=== PATIENT | male | born 1985 | race Caucasian/White ===

== ENCOUNTER 2016-09-25 19:18 | Emergency (ER) | payer OTHER ==
[2016-09-25 19:30] VITALS: PULSE 72; O2SAT 100
[2016-09-25] MEDS ORDERED: TORAdol 30 mg Injection IM ONE (19:34)
[2016-09-25] MEDS ORDERED: Norflex 60 MG/2 ML IM ONE (19:34)
--- NOTE | 2016-09-25 19:38 | ERPHSYRPT ---
- History of Present Illness Time Seen by Provider: 09/25/16 19:34 Source: patient Patient Subjective Stated Complaint: pt fell 2 days ago due to broken step -he twisted his lower back -he was going to come in then but decided to wait but tonight the pain is worse -increased pain with movement -no numbness or tingling Triage Nursing Assessment: pt is awake and alert and able to answer questions - required assistance with getting undressed due tot he pain but able to move all extremeties Physician History: CC: back pain hx: 31 y/o patient of [facility] [place]. He reports twisting low back and falling on a step at [facility] house two days ago. Recently moved here form . He has severe low back pain, constipation. No N/T/W. No incontinence. He repots allergic to benadryl. Has taken flexeril and naproxen in the past. Told nurse he ran out of vicodin this week but it is not listed on his INSPECT report. Pain severe and worse with movement. Timing/Duration: day(s) (2) Back Pain Location: lumbar spine Severity of Pain-Max: severe Severity of Pain-Current: severe Allergies/Adverse Reactions: diphenhydramine [From Benadryl] Allergy (Verified 09/25/16 19:37) Home Medications: Diclofenac Sodium 1 tab DAILY 09/25/16 [History] Hydrocodone/APAP 10/325 mg [[place] 10/325 MG Tablet] 1 tab 09/25/16 [ History] Hx Tetanus, Diphtheria Vaccination/Date Given: No Hx Influenza Vaccination/Date Given: No Immunizations Up to Date: No - Review of Systems Constitutional: No Fever, No Chills Respiratory: No Dyspnea Cardiac: No Chest Pain Abdominal/Gastrointestinal: No Abdominal Pain Genitourinary Symptoms: No Dysuria, No Incontinence Musculoskeletal: Back Pain Skin: No Rash Neurological: No Headache All Other Systems: Reviewed and Negative - Past Medical History Pertinent Past Medical History: Yes (hx back pain) - Social History Smoking Status: Current every day smoker Exposure to second hand smoke: Yes Patient Lives Alone: No - Nursing Vital Signs Temperature: 98 F Temperature Source: Oral Pulse Rate: 72 Respiratory Rate: 16 Pain Intensity: 10 - Physical Exam General Appearance: alert, thin Eye Exam: PERRL/EOMI Ears, Nose, Throat Exam: normal ENT inspection, moist mucous membranes Neck Exam: normal inspection, supple Respiratory Exam: normal breath sounds, lungs clear Cardiovascular Exam: regular rate/rhythm Gastrointestinal Exam: soft, No tenderness, No distention Male [place] Exam: normal genitalia Back Exam: vertebral tenderness, point tenderness Extremity Exam: normal inspection, normal range of motion Neurologic Exam: alert, oriented x 3, cooperative, sensation nml, other (2+ patellar MSR's bilateral), No motor deficits Skin Exam: warm, dry, jaundice, No rash SpO2: 100 Oxygen Delivery: Room Air - Course Nursing assessment & vital signs reviewed: Yes - CT Exams lumbar CT Interpretation: Tele-radiologist Report (DJD, L4-5 disk bulge) Ordered Tests: Active Orders 24 hr Category Date Time Status LUMBAR SPINE W/O [CT] Stat Exams 09/25/16 19:34 Taken Medication Summary Discontinued Medications Generic Name Dose Route Start Last Admin Trade Name Freq PRN Reason Stop Dose Admin Ketorolac Tromethamine 60 mg 09/25/16 19:34 09/25/16 19:43 Toradol 30 Mg Injection IM 09/25/16 19:35 60 mg STAT ONE Administration Ketorolac Tromethamine Confirm 09/25/16 19:41 Toradol 30 Mg Injection Administered 09/25/16 19:42 Dose 60 mg .ROUTE .STK-MED ONE Orphenadrine Citrate 60 mg 09/25/16 19:34 09/25/16 19:43 Norflex 60 Mg/2 Ml IM 09/25/16 19:35 60 mg STAT ONE Administration Orphenadrine Citrate Confirm 09/25/16 19:41 Norflex 60 Mg/2 Ml Administered 09/25/16 19:42 Dose 60 mg .ROUTE .STK-MED ONE - Progress Progress Note: 09/25/16 20:44 Toradol and norflex given. Advised follow up and consider PT. Instr given. Counseled pt/family regarding: diagnosis, need for follow-up, rad results - Departure Time of Disposition: 20:44 Departure Disposition: Home Clinical Impression: Lumbar sprain Qualifiers: Encounter type: initial encounter Qualified Code(s): S33.5XXA - Sprain of ligaments of lumbar spine, initial encounter Condition: Stable Critical Care Time: No Referrals: DOCTOR,NO FAMILY [NON-STAFF PHY W/O PRIVILEGES] - Instructions: Low Back Pain Additional Instructions: BACK INJURY 1. May apply moist heat frequently for relief of pain. Take care not to burn the skin. Do not use heat for more than 30 minutes at a time. 2. Try to sleep on a firm bed, flat on your back. 3. If no improvement is noticed in 2-3 days, follow up with your family physician. 4. If you notice any numbness, tingling, weakness, or problems with your bowel or bladder, you should call your family physician or return to the emergency department. Rx norflex- no driving. Rx naproxen for pain. Follow up with a family doctor to consider physical therapy. Prescriptions: Naproxen 1 tab PO BID #20 tablet Orphenadrine Citrate 100 mg [Norflex 100 MG Tablet] 1 tab PO BID #10 tab
[2016-09-25] MEDS ORDERED: TORAdol 30 mg Injection ONE (19:41)
[2016-09-25] MEDS ORDERED: Norflex 60 MG/2 ML ONE (19:41)
[2016-09-25 20:28] VITALS: BP 118/60
--- NOTE | 2016-09-26 08:46 | XRAY ---
Indication: Low back pain following twisting injury/fall. Multiple contiguous axial images obtained through the lumbar spine. Sagittal and coronal reformatted images obtained. Comparison: None Axial images negative for acute fracture, suspicious bony lesions, or spinal canal stenosis. Minimal broad-based L4-S1 disc bulge. Facets are symmetric. Sagittal and coronal reformatted images demonstrates normal alignment with L5-S1 disc space narrowing. No acute compression fracture or subluxation. Visualized noncontrasted soft tissues demonstrates mild scattered colonic fecal debris throughout and mild fluid distended small bowel loops with air-fluid leveling. 1.5 cm left mid renal cortical cyst. Impression: 1. L4-S1 degenerative disc disease. Nothing acute. 2. Incidental soft tissue findings including left renal cyst and fecal stasis. Also fluid distention small bowel loops with fluid leveling, ileus versus enteritis. Comment: Preliminary interpretation was made by [facility]. No critical discrepancy. CT DI 33.93
== END 2016-09-25 21:00 | disposition home or self-care (01) ==
LOC: ED 19:18
DX: S33.5XXA Sprain of ligaments of lumbar spine, initial encounter (principal); W10.9XXA Fall (on) (from) unspecified stairs and steps, initial encounter; M54.5 Low back pain; K59.00 Constipation, unspecified
CPT/HCPCS: 72131; 96372; 99284; J1885; J2360

== ENCOUNTER 2016-11-12 11:37 | Emergency (ER) | payer OTHER ==
[2016-11-12 11:44] VITALS: O2SAT 100
[2016-11-12] MEDS ORDERED: Rocephin 1000 MG INJ IM ONE (11:57)
[2016-11-12] MEDS ORDERED: Rocephin 1000 MG INJ ONE (12:00)
[2016-11-12] MEDS ORDERED: XYLOCAINE 1% HCL 20 ML MDV ONE (12:00)
--- NOTE | 2016-11-12 12:01 | ERPHSYRPT ---
- History of Present Illness Time Seen by Provider: 11/12/16 11:57 Source: patient Exam Limitations: no limitations Patient Subjective Stated Complaint: rash for 1 week Triage Nursing Assessment: fine red rash to torso, arms legs for past week. pt states rash came on after mushroom hunting one week ago. c/o severe itching. small blistered area to lt dorsal axilla Physician History: rash for 1 week. fine red rash to torso, arms legs for past week. pt states rash came on after mushroom hunting one week ago. c/o severe itching. small blistered area to lt dorsal axilla Timing/Duration: week(s) (one week) Quality: burning Location: torso, extremities, axillary (L) Possible Causes: no cause identified Allergies/Adverse Reactions: diphenhydramine [From Benadryl] Allergy (Verified 11/12/16 11:44) Home Medications: Diclofenac Sodium 1 tab PO DAILY 09/25/16 [History] Hx Tetanus, Diphtheria Vaccination/Date Given: Yes Hx Influenza Vaccination/Date Given: No Hx Pneumococcal Vaccination/Date Given: No Immunizations Up to Date: Yes - Review of Systems Constitutional: No Fever, No Chills Eyes: No Symptoms Ears, Nose, & Throat: No Symptoms Respiratory: No Cough, No Dyspnea Cardiac: No Chest Pain, No Edema, No Syncope Abdominal/Gastrointestinal: No Abdominal Pain, No Nausea, No Vomiting, No Diarrhea Genitourinary Symptoms: No Dysuria Musculoskeletal: No Back Pain, No Neck Pain Skin: Induration, Rash, Skin Lesions Neurological: No Dizziness, No Focal Weakness, No Sensory Changes Psychological: No Symptoms Endocrine: No Symptoms All Other Systems: Reviewed and Negative - Past Medical History Pertinent Past Medical History: Yes (hx back pain) Musculoskeletal History: Other Psycho-Social History: Depression Other Medical History: upper back problems -"bad disc" - Past Surgical History Past Surgical History: No - Social History Smoking Status: Current every day smoker Exposure to second hand smoke: Yes Drug Use: marijuana Patient Lives Alone: No - Nursing Vital Signs Nursing Vital Signs: Initial Vital Signs Temperature 97.4 F Temperature Source Oral Pulse Rate 80 Respiratory Rate 18 Blood Pressure [Right Arm] 149/93 Pain Intensity 0 - Physical Exam General Appearance: no apparent distress, alert Eye Exam: PERRL/EOMI, eyes nml inspection Ears, Nose, Throat Exam: normal ENT inspection, pharynx normal, moist mucous membranes Neck Exam: normal inspection, non-tender, supple, full range of motion Respiratory Exam: normal breath sounds, lungs clear, No respiratory distress Cardiovascular Exam: regular rate/rhythm, normal heart sounds Gastrointestinal/Abdomen Exam: soft, No tenderness, No mass Back Exam: normal inspection, normal range of motion, No CVA tenderness, No vertebral tenderness Extremity Exam: normal inspection, normal range of motion Neurologic Exam: alert, oriented x 3, cooperative, normal mood/affect, sensation nml, No motor deficits Skin Exam: normal color, warm, dry, rash Lymphatic Exam: axilla node tender (L), No adenopathy SpO2: 100 Oxygen Delivery: Room Air - Course Nursing assessment & vital signs reviewed: Yes - Progress Progress: unchanged Counseled pt/family regarding: diagnosis, need for follow-up - Departure Time of Disposition: 11:59 Departure Disposition: Home Clinical Impression: Staph skin infection Condition: Stable Critical Care Time: No Referrals: NEAL SANTOS MD [Primary Care Provider] - Additional Instructions: Please follow the instructions given to you. Please take your medication as prescribed if given. If symptoms recur or get worse, come back to the emergency room if you cannot reach your primary care physician, or call your primary care physician for an appointment. Again if your symptoms get worse, come back to the emergency room. Thanks for visiting emergency room, and let us take care of you. Prescriptions: Mupirocin [Bactroban OINTMENT] 1 gm TP BID #20 tube Cephalexin Mh 500 mg [Keflex 500 mg] 500 mg PO Q6H #40 capsule
[2016-11-12 12:21] VITALS: BP 159/89; PULSE 76
== END 2016-11-12 12:21 | disposition home or self-care (01) ==
LOC: ED 11:37
DX: B95.8 Unspecified staphylococcus as the cause of diseases classified elsewhere (principal)
CPT/HCPCS: 96372; 99284; J0696

== ENCOUNTER 2017-01-17 11:37 | Emergency (ER) | payer OTHER ==
[2017-01-17] MEDS ORDERED: NORCO 5/325 MG PO ONE (12:04)
[2017-01-17] MEDS ORDERED: NORCO 5/325 MG ONE (12:07)
--- NOTE | 2017-01-17 12:08 | ERPHSYRPT ---
- History of Present Illness Time Seen by Provider: 01/17/17 11:59 Source: patient Patient Subjective Stated Complaint: JUMPED OFF FOUR FOOT WALL LAST NIGHT INJURING RIGHT LOWER LEG Triage Nursing Assessment: AMBULATED TO ROOM WITH ASSIST OF FAMILY MEMBER. LIMPING ON RIGHT LEG. NO OBVIOUS INJURY TO LEG. NO SWELLING NOTED. GOOD PEDAL PULSE, FOOT WARM, NORMAL COLOR. Physician History: CC: leg pain Hx: 31 y/o patient jumped off 4 foot wall yesterday playing with step son at housing projects. He has pain in right lower leg, rather severe, worse with movement, seems to be centered around the knee. No other injuries. No foot or ankle pain. No neck or back pain. No N/T/W. Occurred: yesterday Lower Extremities Pain: knee: right Allergies/Adverse Reactions: diphenhydramine [From Benadryl] Allergy (Verified 01/17/17 11:52) Hx Tetanus, Diphtheria Vaccination/Date Given: No Hx Influenza Vaccination/Date Given: No Hx Pneumococcal Vaccination/Date Given: No - Review of Systems Constitutional: No Symptoms Abdominal/Gastrointestinal: No Nausea, No Vomiting Musculoskeletal: Injury (right knee), No Back Pain, No Neck Pain Skin: No Rash Neurological: No Focal Weakness, No Headache, No Parasthesia - Past Medical History Pertinent Past Medical History: Yes (hx back pain) Musculoskeletal History: Other Psycho-Social History: Depression Other Medical History: upper back problems -"bad disc" - Past Surgical History Past Surgical History: No - Social History Smoking Status: Current every day smoker How long have you smoked: 14 Exposure to second hand smoke: Yes Drug Use: marijuana Patient Lives Alone: No - Nursing Vital Signs Nursing Vital Signs: Initial Vital Signs Temperature 98.6 F Temperature Source Oral Pulse Rate 94 Respiratory Rate 16 Blood Pressure [Right Arm] 124/75 Pain Intensity 10 - Physical Exam General Appearance: alert Eyes, Ears, Nose, Throat Exam: moist mucous membranes Neck Exam: non-tender, supple Cardiovascular/Respiratory Exam: chest non-tender, normal breath sounds, regular rate/rhythm Gastrointestinal/Abdominal Exam: non-tender, soft Back Exam: normal inspection, No vertebral tenderness Hips Exam: bilateral: non-tender Knees Exam: right knee: bone tenderness (at and below knee proximal lower leg. No swelling. No discoloration. Distal pulses intact.) Ankle Exam: bilateral ankle: non-tender, normal inspection Foot Exam: bilateral foot: non-tender (no right calcaneal tenderness) Neuro/Tendon Exam: normal sensation, normal motor functions Mental Status Exam: alert, oriented x 3, cooperative Skin Exam: warm, dry SpO2 Interpretation: normal SpO2: 100 Oxygen Delivery: Room Air - Course Nursing assessment & vital signs reviewed: Yes - Radiology Exams right knee and lower leg X-ray Interpretation: Teleradiologist Report, Negative, No Fracture Ordered Tests: Active Orders 24 hr Category Date Time Status Henry Bandage Application -[facility] STAT Care 01/17/17 12:36 Active Cold Application STAT Care 01/17/17 12:05 Active KNEE (3 VIEWS) Stat Exams 01/17/17 12:04 Completed LOWER LEG Stat Exams 01/17/17 12:04 Completed Medication Summary Discontinued Medications Generic Name Dose Route Start Last Admin Trade Name Mayela PRN Reason Stop Dose Admin Hydrocodone Bitart/Acetaminophen 1 tab 01/17/17 12:04 01/17/17 12:08 [place] 5/325 Mg PO 01/17/17 12:05 1 tab STAT ONE Administration Hydrocodone Bitart/Acetaminophen Confirm 01/17/17 12:07 [place] 5/325 Mg Administered 01/17/17 12:08 Dose 1 tab .ROUTE .STK-MED ONE Ketorolac Tromethamine 60 mg 01/17/17 12:36 Toradol 30 Mg Injection IM 01/17/17 12:37 STAT ONE - Progress Progress Note: 01/17/17 12:41 [place] and toradol given here for pain. Leg is soft without sign of compartment syndrome. Apepars to be knee sprain/contusion. He declines crutches. Henry wrap and ice applied. Instr given. Counseled pt/family regarding: diagnosis, need for follow-up, rad results - Departure Time of Disposition: 12:42 Departure Disposition: Home Clinical Impression: Right knee sprain Qualifiers: Encounter type: initial encounter Involved ligament of knee: unspecified ligament Qualified Code(s): S83.91XA - Sprain of unspecified site of right knee , initial encounter Condition: Stable Critical Care Time: No Referrals: NEAL SANTOS MD [Primary Care Provider] - DOCTOR,NO FAMILY [NON-STAFF PHY W/O PRIVILEGES] - Instructions: Knee Sprain, Use an Elastic Bandage-Knee Sprain Additional Instructions: SPRAINS/STRAINS/CONTUSIONS 1. Rest the affected area as much as possible for the next few days. 2. Apply ice to the affected area for 20-30 minutes at a time, several times a day. 3. If you receive an elastic wrap, wear it only while awake for comfort and support. Re-wrap the elastic wrap if it feels too tight or too loose. 4. If swelling is present, elevate the affected part above the level of the heart for at least 2 to 3 days. 5. Use splints, slings, or crutches as instructed. 6. Watch for severe swelling, coldness, numbness, and discoloration of the fingers and toes. See your family physician or return to the emergency department if any of these are noted. Rx ibuprofen. Prescriptions: Ibuprofen 600 mg PO Q6H PRN PRN #24 tablet PRN Reason: Pain
--- NOTE | 2017-01-17 12:31 | XRAY ---
Indication: Pain following jumping injury. Comparison: None 3 views of the right knee obtained. No bony, articular, or soft tissue abnormalities.
--- NOTE | 2017-01-17 12:33 | XRAY ---
Indication: Pain following jumping injury. Comparison: None 2 views of the right lower leg obtained. No bony, articular, or soft tissue abnormalities.
[2017-01-17] MEDS ORDERED: TORAdol 30 mg Injection IM ONE (12:36)
[2017-01-17] MEDS ORDERED: TORAdol 30 mg Injection ONE (12:42)
[2017-01-17 13:09] VITALS: BP 123/68; PULSE 78; O2SAT 99
== END 2017-01-17 13:09 | disposition home or self-care (01) ==
LOC: ED 11:37
DX: S83.91XA Sprain of unspecified site of right knee, initial encounter (principal); W17.89XA Other fall from one level to another, initial encounter; Y93.39 Activity, other involving climbing, rappelling and jumping off; Y93.83 Activity, rough housing and horseplay; M79.661 Pain in right lower leg
CPT/HCPCS: 73562; 73590; 96372; 99284; J1885; A9270-GY

== ENCOUNTER 2017-01-21 16:08 | Emergency (ER) | payer OTHER ==
[2017-01-21] MEDS ORDERED: TORAdol 30 mg Injection IM ONE (16:54)
[2017-01-21] MEDS ORDERED: TORAdol 30 mg Injection ONE (16:59)
--- NOTE | 2017-01-21 17:36 | ERPHSYRPT ---
- History of Present Illness Time Seen by Provider: 01/21/17 16:39 Source: patient, family () Patient Subjective Stated Complaint: pt states he was seen in ER on 01/17/17 in [place] for a right knee injury. pt c/o pain to right lower leg. states he has pain, tingling and numbness. Triage Nursing Assessment: pt pink, warm, dry. mild swelling noted to right lower leg. pedal pulses equal and strong. Physician History: CC: right leg pain Hx: 31 y/o man with right lower leg pain. He jumped 4 feet and had pain around knee last week. He had negative right knee and lower leg xrays. He worked yesterday and the pain increased and he had swelling of the leg and foot. He has cold feeling in the foot and tingling. He fell using the crutches but does not think he had addl injury. No neck or back pain. The swelling is better today. He is worried about circulation. Occurred: last week Allergies/Adverse Reactions: diphenhydramine [From Benadryl] Allergy (Verified 01/21/17 16:46) Hx Tetanus, Diphtheria Vaccination/Date Given: No Hx Influenza Vaccination/Date Given: No Hx Pneumococcal Vaccination/Date Given: No - Review of Systems Constitutional: No Fever, No Chills Musculoskeletal: Fall, Injury (right lower leg), No Back Pain, No Neck Pain Neurological: Parasthesia (lower leg), No Focal Weakness - Past Medical History Pertinent Past Medical History: Yes (hx back pain) Musculoskeletal History: Other Psycho-Social History: Depression Other Medical History: upper back problems -"bad disc" - Past Surgical History Past Surgical History: No - Social History Smoking Status: Current every day smoker How long have you smoked: 14 Exposure to second hand smoke: Yes Drug Use: marijuana 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) - Nursing Vital Signs Nursing Vital Signs: Initial Vital Signs Temperature 99.3 F Temperature Source Oral Pulse Rate 61 Respiratory Rate 20 Blood Pressure [Right Arm] 110/68 Pain Intensity 0 - Physical Exam General Appearance: alert Eyes, Ears, Nose, Throat Exam: moist mucous membranes Neck Exam: non-tender, supple Cardiovascular/Respiratory Exam: regular rate/rhythm Back Exam: normal inspection, No vertebral tenderness Neuro/Tendon Exam: normal sensation, normal motor functions Mental Status Exam: alert, oriented x 3, cooperative Skin Exam: warm, dry, No rash Comments: right leg has some tenderness around the patella, right medial malleolus area. No erythema. Minimal swelling. Pain out of proportion. Inspection normal. Right pedal pulses diminished compared to left. Cap refill intact. No bruising noted. - Course Nursing assessment & vital signs reviewed: Yes - Radiology Ultrasound Exam right leg arterial Ultrasound: Other (normal flow, no arterial lesion, no sign of DVT.) Ordered Tests: Active Orders 24 hr Category Date Time Status ARTERIAL UNILAT/LTD LOWER EXT [US] Stat Exams 01/21/17 16:54 Ordered Medication Summary Discontinued Medications Generic Name Dose Route Start Last Admin Trade Name Freq PRN Reason Stop Dose Admin Ketorolac Tromethamine 60 mg 01/21/17 16:54 01/21/17 16:59 Toradol 30 Mg Injection IM 01/21/17 16:55 60 mg STAT ONE Administration Ketorolac Tromethamine Confirm 01/21/17 16:59 Toradol 30 Mg Injection Administered 01/21/17 17:00 Dose 60 mg .ROUTE .STK-MED ONE - Progress Progress Note: 01/21/17 17:35 Prior xrays neg. Exam same except possibly some diminished right pedal pulses. Will get arterial sono to rule out arterial injury/disease. 01/21/17 18:23 He needs work slip. Has appt with Janice MORALES Monday. Counseled pt/family regarding: diagnosis, need for follow-up, rad results - Departure Time of Disposition: 18:23 Departure Disposition: Home Clinical Impression: Sprain of right knee/leg Condition: Stable Critical Care Time: No Referrals: SANTOSH LINDO MD [Primary Care Provider] - Instructions: Leg Pain Additional Instructions: Elevate, rest. Continue ibuprofen. Follow up with Dr Lindo Monday. Off work until follow up.
[2017-01-21 18:30] VITALS: BP 114/58; PULSE 63
--- NOTE | 2017-01-21 21:21 | XRAY ---
Indication: Lower leg pain and foot numbness following jumping injury 5 days ago. Two-dimensional sonogram and color Doppler imaging of the major arteries of the right leg was performed. Comparison: None Visualized common femoral, superficial femoral, popliteal, posterior tibial, peroneal, and dorsal pedal arteries are widely patent. Normal multiphasic arterial waveforms throughout the right leg. Impression: Right leg arterial sonogram is negative. Comment: Preliminary report was given.
== END 2017-01-21 18:29 | disposition home or self-care (01) ==
LOC: ED 16:08
DX: S83.91XA Sprain of unspecified site of right knee, initial encounter (principal); Y93.39 Activity, other involving climbing, rappelling and jumping off
CPT/HCPCS: 93926; 96372; 99284; J1885

== ENCOUNTER 2017-08-15 20:49 | Emergency (ER) | payer OTHER ==
[2017-08-15 21:03] VITALS: O2SAT 99
[2017-08-15] MEDS ORDERED: XYLOCAINE 1% HCL 20 ML MDV IJ ONE (21:04)
[2017-08-15] MEDS ORDERED: XYLOCAINE 1% HCL 20 ML MDV ONE (21:06)
[2017-08-15] MEDS ORDERED: BACIGUENT PACKET TP ONE (21:07)
[2017-08-15] MEDS ORDERED: BACIGUENT PACKET ONE (21:08)
[2017-08-15] MEDS ORDERED: TORAdol 30 mg Injection IM ONE (21:16)
[2017-08-15] MEDS ORDERED: TORAdol 30 mg Injection ONE (21:18)
--- NOTE | 2017-08-15 21:21 | ERPHSYRPT ---
- History of Present Illness Time Seen by Provider: 08/15/17 21:05 Source: patient Exam Limitations: no limitations Patient Subjective Stated Complaint: left foot 1st digit, nail displaced, held in position by cuticle/nailbed. States was having nerf war with kids and kicked his other foot. Good ROM of toe Triage Nursing Assessment: left 1st digit toenail perpendicular to nailbed, bleeding controlled on assessment, pain to area Physician History: 32 y/o male comes to the ER after being in a nerf war with his kids and his left big toe was hanging from the nail bed upon arrival. Pt admits to an extreme amount of pain, describing the pain as sharp, constant, 8/10 and pt has not taken any pain meds. Method of Injury: direct blow Occurred: just prior to arrival Quality: constant Severity of Pain-Max: severe Severity of Pain-Current: severe Lower Extremities Pain: 1st toe: left Modifying Factors: Improves With: nothing Associated Symptoms: none Allergies/Adverse Reactions: diphenhydramine [From Benadryl] Allergy (Verified 01/21/17 16:46) Hx Tetanus, Diphtheria Vaccination/Date Given: Yes Hx Influenza Vaccination/Date Given: No Hx Pneumococcal Vaccination/Date Given: No Immunizations Up to Date: Yes - Review of Systems Constitutional: No Fever, No Chills Eyes: No Symptoms Ears, Nose, & Throat: No Symptoms Respiratory: No Cough, No Dyspnea Cardiac: No Chest Pain, No Edema, No Syncope Abdominal/Gastrointestinal: No Abdominal Pain, No Nausea, No Vomiting, No Diarrhea Genitourinary Symptoms: No Dysuria Musculoskeletal: Joint Pain, No Back Pain, No Neck Pain Skin: No Rash Neurological: No Dizziness, No Focal Weakness, No Sensory Changes Psychological: No Symptoms Endocrine: No Symptoms All Other Systems: Reviewed and Negative - Past Medical History Pertinent Past Medical History: Yes (hx back pain) Musculoskeletal History: Other Psycho-Social History: Depression Other Medical History: upper back problems -"bad disc" - Past Surgical History Past Surgical History: No - Social History Smoking Status: Current every day smoker How long have you smoked: 14 Exposure to second hand smoke: Yes Drug Use: marijuana 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) - Nursing Vital Signs Nursing Vital Signs: Initial Vital Signs Temperature 97.6 F 08/15/17 20:58 Pulse Rate 106 H 08/15/17 20:58 Respiratory Rate 20 08/15/17 20:58 Blood Pressure 155/94 08/15/17 20:58 O2 Sat by Pulse Oximetry 99 08/15/17 20:58 Pain Scale Pain Intensity 10 - Physical Exam General Appearance: moderate distress Eyes, Ears, Nose, Throat Exam: moist mucous membranes Neck Exam: non-tender, supple Cardiovascular/Respiratory Exam: chest non-tender, normal breath sounds, regular rate/rhythm, no respiratory distress Gastrointestinal/Abdominal Exam: non-tender, guarding Back Exam: normal inspection, No vertebral tenderness Foot Exam: left foot: nail injury (nail hanging from nail bed) Neuro/Tendon Exam: normal sensation, normal motor functions Mental Status Exam: alert, oriented x 3, cooperative Skin Exam: normal color, warm, dry SpO2: 99 Oxygen Delivery: Room Air - Course Nursing assessment & vital signs reviewed: Yes Ordered Tests: Medication Summary Discontinued Medications Generic Name Dose Route Start Last Admin Trade Name Freq PRN Reason Stop Dose Admin Bacitracin 0.9 gm 08/15/17 21:07 08/15/17 21:09 Baciguent Packet TP 08/15/17 21:08 0.9 gm STAT ONE Administration Bacitracin Confirm 08/15/17 21:08 Baciguent Packet Administered 08/15/17 21:09 Dose 1 gm .ROUTE .STK-MED ONE Lidocaine HCl 10 ml 08/15/17 21:04 08/15/17 21:07 Xylocaine 1% Hcl 20 Ml Mdv IJ 08/15/17 21:05 10 ml STAT ONE Administration Lidocaine HCl Confirm 08/15/17 21:06 Xylocaine 1% Hcl 20 Ml Mdv Administered 08/15/17 21:07 Dose 10 ml .ROUTE .STK-MED ONE - Progress Progress: improved Progress Note: 08/15/17 21:19 I performed a digital block with 7cc of lidocaine without epi, cleaned the are with betasept and used hemostats to pull off the remaining nail. Pt will have the wound wrapped and the patient will be sent home on toradol for pain. - Departure Time of Disposition: 21:21 Departure Disposition: Home Clinical Impression: Nail bed injury Condition: Stable Critical Care Time: No Instructions: Toe Injury (DC) Additional Instructions: Return to the ER if the toe becomes warm to touch, swelling, redness, fever or chills. Prescriptions: Ketorolac Tromethamine [Toradol] 10 mg PO QID PRN #20 tablet PRN Reason: Pain
[2017-08-15 21:32] VITALS: BP 136/80; PULSE 100
== END 2017-08-15 21:36 | disposition home or self-care (01) ==
LOC: ED 20:49
DX: S99.922A Unspecified injury of left foot, initial encounter (principal); M25.572 Pain in left ankle and joints of left foot; W22.8XXA Striking against or struck by other objects, initial encounter; Y93.89 Activity, other specified; Z72.0 Tobacco use
CPT/HCPCS: 96372; 99284; J1885; A9270-GY